=== PATIENT | male | born 1955 | race African-American/Black ===

== ENCOUNTER 2017-07-06 19:03 | Inpatient (IN) | payer OTHER ==
[~2017-07-06] VITALS: Ht 165.1 cm; Wt 136.1 kg
[~2017-07-06 19:03] MED LIST: ALBU2.5V13 IH; FURO-151 PO; LISI10TA5 PO; RANI300T4 PO
[2017-07-06 21:55] LABS: BASOPHILS % 1.2 % (0.0-2.0); EOSINOPHILS % 2.7 % (0.0-5.0); HEMATOCRIT. 40.1 % (42.0-52.0); HEMOGLOBIN. 13.2 g/dL (14.0-18.0); LYMPHOCYTES % 25.5 % (20.0-50.0); MEAN CORPUSCULAR HEMOGLOBIN 27.2 pg (28.0-32.0); MEAN CORPUSCULAR VOLUME 82.9 fL (80.0-94.0); MEAN PLATELET VOLUME 10.7 fl (7.4-10.4); MONOCYTES % 8.2 % (2.0-8.0); NEUTROPHILS % 62.4 % (40.0-76.0); PLATELET 235 x1000/uL (130-400); RED BLOOD CELL COUNT 4.84 mill/uL (4.7-6.1); RED CELL DISTRIBUTION WIDTH 14.9 % (11.6-14.6)
[2017-07-06 22:01] LABS: PROTHROMBIN TIME 10.4 sec (9.4-11.6)
[2017-07-06 22:02] LABS: CARBON DIOXIDE 28 mEq/L (21-32); CHLORIDE 100 mEq/L (98-107)
[2017-07-06 22:08] LABS: TROPONIN I < 0.02 ng/mL (0.00-0.04)
[2017-07-06] MEDS ORDERED: SODIUM CHLORIDE 0.9% 1,000 ML IV ONE (22:35)
[2017-07-06] MEDS ORDERED: INSULIN REGULAR (HUMULIN R) 300UNITS/3ML IV ONE (22:45)
[2017-07-06] MEDS ORDERED: ASPIRIN 325MG EC TABLET PO ONE (22:45)
[2017-07-06] MEDS ORDERED: ONDANSETRON HCL 4MG/2ML VIAL IV PRN (23:15)
[2017-07-06] MEDS ORDERED: MAGNESIUM/ALUMINUM HYDROXIDE/SIMETHICONE 30ML UDC PO PRN (23:15)
[2017-07-06] MEDS ORDERED: KETOROLAC 15MG/ML VIAL IV PRN (23:15)
[2017-07-06] MEDS ORDERED: DIPHENHYDRAMINE 50MG/ML VIAL IV PRN (23:15)
[2017-07-06] MEDS ORDERED: ZOLPIDEM TARTRATE 5MG TABLET PO PRN (23:15)
[2017-07-06] MEDS ORDERED: DEXTROSE 50% WATER 50ML SYRINGE IV PRN (23:15)
[2017-07-06] MEDS ORDERED: TRAMADOL 50MG TABLET PO PRN (23:15)
[2017-07-06] MEDS ORDERED: LORAZEPAM 2MG/ML CPJ IV PRN (23:15)
[2017-07-06] MEDS ORDERED: ENOXAPARIN 40MG/0.4ML SYR SUBCUT SCH (23:15)
[2017-07-06] MEDS ORDERED: NA PHOS,M-B/NA PHOS,DI-BA ENEMA 118ML PR PRN (23:15)
[2017-07-06] MEDS ORDERED: DOCUSATE SODIUM 100MG CAPSULE PO PRN (23:15)
[2017-07-06] MEDS ORDERED: GUAIFENESIN 200MG/10ML SUGAR FREE UDC PO PRN (23:15)
[2017-07-06] MEDS ORDERED: ACETAMINOPHEN 325MG TABLET PO PRN (23:15)
[2017-07-06] MEDS ORDERED: CLONIDINE 0.1MG TABLET PO PRN (23:15)
[2017-07-07 00:15] LABS: ETHANOL BLOOD < 10 mg/dL; HDL CHOLESTEROL 38 mg/dL (40-59); LDL CHOLESTEROL 90 mg/dL (5-100)
[2017-07-07 03:00] VITALS: BP 133/80
[2017-07-07] MEDS ORDERED: ATOR10TA PO (06:06)
[2017-07-07] MEDS ORDERED: SPIR25TA4 PO (06:06)
[2017-07-07] MEDS ORDERED: GABA-531 PO (06:06)
[2017-07-07] MEDS ORDERED: ASPI-1159 PO (06:06)
[2017-07-07] MEDS ORDERED: ALBU18HF2 IH (06:06)
[2017-07-07] MEDS ORDERED: COR6 PO (06:06)
[2017-07-07] MEDS ORDERED: INSU100I28 SQ (06:06)
[2017-07-07] MEDS ORDERED: AMLO5TAB88 PO (06:06)
[2017-07-07] MEDS: BLOOD SUGAR DIAGNOSTIC STRIP TEST SCH ×4 (06:49→21:00)
[2017-07-07] MEDS: INSULIN LISPRO 100 UNITS/ML SUBCUT SCH ×7 (06:53→21:48)
[2017-07-07 07:16] LABS: FOLIC ACID (FOLATE) SERUM 9.2 ng/mL (>5.38)
[2017-07-07 07:54] LABS: *AMPHETAMINES SCREEN URINE NEGATIVE (NEGATIVE); *BARBITURATES SCREEN URINE NEGATIVE (NEGATIVE); *BENZODIAZEPINES SCREEN URINE NEGATIVE (NEGATIVE); *COCAINE SCREEN URINE NEGATIVE (NEGATIVE); CANNABINOID URINE SCREEN NEGATIVE (NEGATIVE); METHADONE URINE SCREEN NEGATIVE (NEGATIVE); OPIATES URINE SCREEN NEGATIVE (NEGATIVE); PHENCYCLIDINE URINE SCREEN NEGATIVE (NEGATIVE)
[2017-07-07 08:00] VITALS: BP 120/72
[2017-07-07 09:38] LABS: CREATINE KINASE 279 IU/L (39-308); TROPONIN I < 0.02 ng/mL (0.00-0.04)
[2017-07-07] MEDS ORDERED: INSULIN DETEMIR UD 100 UNITS/ML SYR SUBCUT SCH (10:00)
[2017-07-07] MEDS: ENOXAPARIN 40MG/0.4ML SYR SUBCUT SCH ×2 (10:01→21:47)
[2017-07-07] MEDS: LISINOPRIL 20MG TABLET PO SCH ×2 (10:01→21:47)
[2017-07-07] MEDS: ASPIRIN 325MG EC TABLET PO SCH (10:02)
[2017-07-07] MEDS: FAMOTIDINE 20MG/2ML VIAL IV SCH ×2 (11:54→21:47)
[2017-07-07 12:00] VITALS: BP 128/80
[2017-07-07 15:33] VITALS: BP 132/78
[2017-07-07 16:23] LABS: CREATINE KINASE 269 IU/L (39-308); TROPONIN I < 0.02 ng/mL (0.00-0.04)
[2017-07-07] MEDS: IPRATROPIUM/ALBUTEROL 0.5-3(2.5)MG/3ML NEB INH PRN (20:22)
[2017-07-07 20:25] VITALS: BP 122/73
[2017-07-08] MEDS: IPRATROPIUM/ALBUTEROL 0.5-3(2.5)MG/3ML NEB INH PRN (00:17)
[2017-07-08 00:25] VITALS: BP 127/50
[2017-07-08 04:00] VITALS: BP 137/78
[2017-07-08 06:36] LABS: BASOPHILS % 1.1 % (0.0-2.0); HEMATOCRIT. 40.5 % (42.0-52.0); HEMOGLOBIN. 13.4 g/dL (14.0-18.0); LYMPHOCYTES % 28.7 % (20.0-50.0); MEAN CORPUSCULAR HEMOGLOBIN 27.3 pg (28.0-32.0); MEAN CORPUSCULAR VOLUME 82.5 fL (80.0-94.0); MEAN PLATELET VOLUME 10.4 fl (7.4-10.4); MONOCYTES % 8.1 % (2.0-8.0); NEUTROPHILS % 59.1 % (40.0-76.0); PLATELET 228 x1000/uL (130-400); RED BLOOD CELL COUNT 4.91 mill/uL (4.7-6.1); RED CELL DISTRIBUTION WIDTH 15.1 % (11.6-14.6)
[2017-07-08] MEDS: BLOOD SUGAR DIAGNOSTIC STRIP TEST SCH ×2 (07:20→12:20)
[2017-07-08 07:49] LABS: CARBON DIOXIDE 28 mEq/L (21-32); CHLORIDE 100 mEq/L (98-107); CREATINE KINASE 263 IU/L (39-308); CREATINE KINASE MB FRACTION 2.1 ng/mL (0.5-3.6); HDL CHOLESTEROL 37 mg/dL (40-59); LDL CHOLESTEROL 90 mg/dL (5-100); TROPONIN I < 0.02 ng/mL (0.00-0.04)
[2017-07-08] MEDS: FAMOTIDINE 20MG/2ML VIAL IV SCH (08:11)
[2017-07-08 09:15] VITALS: BP 137/75
[2017-07-08] MEDS: LISINOPRIL 20MG TABLET PO SCH (09:23)
[2017-07-08] MEDS: ASPIRIN 325MG EC TABLET PO SCH (09:23)
[2017-07-08] MEDS: INSULIN LISPRO 100 UNITS/ML SUBCUT SCH ×4 (09:27→13:10)
[2017-07-08] MEDS: ENOXAPARIN 40MG/0.4ML SYR SUBCUT SCH (09:30)
[2017-07-08] MEDS ORDERED: INSULIN DETEMIR UD 100 UNITS/ML SYR SUBCUT SCH (12:00)
[2017-07-08 12:14] VITALS: BP 137/75
== END 2017-07-08 14:00 | disposition home or self-care (01) | DRG 243 ==
LOC: ER 22:08 → 6WST 23:03 → ENRESERV 07-07 01:41
PROVIDERS: ADMIT Internal Medicine; ATTEND Internal Medicine
DX: K21.9 Gastro-esophageal reflux disease without esophagitis (principal); N17.0 Acute kidney failure with tubular necrosis; I42.9 Cardiomyopathy, unspecified; I11.0 Hypertensive heart disease with heart failure; E11.65 Type 2 diabetes mellitus with hyperglycemia; I50.9 Heart failure, unspecified; Z68.42 Body mass index [BMI] 45.0-49.9, adult; E66.01 Morbid (severe) obesity due to excess calories; D64.9 Anemia, unspecified; G89.29 Other chronic pain; M54.5 Low back pain; J45.909 Unspecified asthma, uncomplicated; E78.00 Pure hypercholesterolemia, unspecified; K25.9 Gastric ulcer, unspecified as acute or chronic, without hemorrhage or perforation; E87.1 Hypo-osmolality and hyponatremia; I25.10 Atherosclerotic heart disease of native coronary artery without angina pectoris; I25.2 Old myocardial infarction; Z79.4 Long term (current) use of insulin; Z86.73 Personal history of transient ischemic attack (TIA), and cerebral infarction without residual deficits; Z79.82 Long term (current) use of aspirin; Z79.899 Other long term (current) drug therapy
CPT/HCPCS: 36415; 71010; 80053; 80061; 80305; 82550; 82553; 82607; 82746; 82962; 83036; 83735; 83880; 84443; 84484; 85025; 85379; 85610; 93005; 93970; 94640; 94664; 96361; 96374; 99285; C1893; G0482; J1650; J1815; J3490; J7030; J7620

== ENCOUNTER 2017-08-22 10:12 | Emergency (ER) | payer OTHER ==
[~2017-08-22] VITALS: Ht 170.2 cm; Wt 136.0 kg
[~2017-08-22 10:12] MED LIST changes: +ALBU18HF2 IH; +AMLO5TAB88 PO; +ASPI-1159 PO; +COR6 PO; +GABA-531 PO; +SPIR25TA4 PO
[2017-08-22 11:37] LABS: BASOPHILS % 1.4 % (0.0-2.0); EOSINOPHILS % 3.5 % (0.0-5.0); HEMATOCRIT. 41.3 % (42.0-52.0); HEMOGLOBIN. 13.5 g/dL (14.0-18.0); LYMPHOCYTES % 18.6 % (20.0-50.0); MEAN CORPUSCULAR HEMOGLOBIN 27.5 pg (28.0-32.0); MEAN CORPUSCULAR VOLUME 84.1 fL (80.0-94.0); MEAN PLATELET VOLUME 10.4 fl (7.4-10.4); MONOCYTES % 11.3 % (2.0-8.0); NEUTROPHILS % 65.2 % (40.0-76.0); PLATELET 227 x1000/uL (130-400); RED BLOOD CELL COUNT 4.91 mill/uL (4.7-6.1); RED CELL DISTRIBUTION WIDTH 14.7 % (11.6-14.6)
[2017-08-22 11:47] LABS: CLARITY URINE CLEAR (CLEAR); COLOR URINE YELLOW (YELLOW); GLUCOSE URINE 3+ (NEGATIVE); KETONES URINE NEGATIVE (NEGATIVE); LEUKOCYTE ESTERASE URINE NEGATIVE (NEGATIVE); NITRITE URINE NEGATIVE (NEGATIVE); OCCULT BLOOD URINE NEGATIVE (NEGATIVE); PROTEIN URINE NEGATIVE (NEGATIVE); SPECIFIC GRAVITY URINE 1.025 (1.005-1.030); UROBILINOGEN URINE 0.2 E.U./dL (0.2-1.0)
[2017-08-22] MEDS ORDERED: SODIUM CHLORIDE 0.9% 1,000 ML IV ONE ×2 (12:00)
[2017-08-22] MEDS ORDERED: INSULIN REGULAR (HUMULIN R) 300UNITS/3ML IV ONE (12:30)
[2017-08-22] MEDS: INSULIN REGULAR (HUMULIN R) UD 100 UNITS/ML SYR IV ONE ×2 (12:31→12:37)
[2017-08-22] MEDS ORDERED: INSULIN REGULAR (HUMULIN R) 300UNITS/3ML IV NR (14:57)
[2017-08-22] MEDS ORDERED: INSULIN REGULAR (HUMULIN R) UD 100 UNITS/ML SYR IV ONE (15:00)
[2017-08-22 16:01] VITALS: BP 122/71
== END 2017-08-22 16:10 | disposition home or self-care (01) ==
LOC: ER 10:17
DX: E11.65 Type 2 diabetes mellitus with hyperglycemia (principal); J45.909 Unspecified asthma, uncomplicated; I50.9 Heart failure, unspecified; Z91.14 Patient's other noncompliance with medication regimen; Z87.11 Personal history of peptic ulcer disease; Z79.4 Long term (current) use of insulin; Z79.82 Long term (current) use of aspirin
CPT/HCPCS: 36415; 80048; 81001; 82962; 83036; 85025; 96361; 96374; 99285; J1815; J7030; Z7610

== ENCOUNTER 2018-03-16 17:23 | Emergency (ER) | payer MEDICAID, OTHER ==
[~2018-03-16] VITALS: Ht 165.1 cm; Wt 150.0 kg
[2018-03-16 22:15] VITALS: BP 145/90
== END 2018-03-16 22:15 | disposition home or self-care (01) ==
LOC: ER 18:33
DX: M25.561 Pain in right knee (principal); E11.9 Type 2 diabetes mellitus without complications; J45.909 Unspecified asthma, uncomplicated; I50.9 Heart failure, unspecified; Z79.82 Long term (current) use of aspirin
CPT/HCPCS: 29505; 73560; 82962; 99284